=== PATIENT | male | born 1955 | race Caucasian/White ===

== ENCOUNTER 2017-01-15 12:48 | Emergency (ER) | payer OTHER ==
--- NOTE | ~2017-01-15 | HP ---
PATIENT'S NAME: MALIA DIANE [facility] AGE: 61 Y [address] ROOM: [place] [address] LOCATION: [facility] ADMIT DATE: 01/15/2017 History & Physical DISCHARGE DATE: 01/15/2017 FAMILY PHYSICIAN: Lan Kwan MD ATTENDING PHYSICIAN: Benedict Amador DATE OF SERVICE: 01/15/2017 REQUESTING PHYSICIAN: Lan Kwan MD CHIEF COMPLAINT: Incarcerated right inguinal hernia. HISTORY OF PRESENT ILLNESS: Mr. Diane is a 61-year-old gentleman who has had a known right inguinal hernia for a while now. He never desired to have this repaired in the past. He has always been able to reduce it before, but did have some difficulty at times. This morning, the hernia was smaller than it has been, but more painful and could not be reduced. He was evaluated by Dr. Kwan who could not reduce the hernia either. The patient then came over to [facility] Emergency Room for evaluation. He complains of pain in the right groin. The pain is fairly severe despite having received narcotics. He has never had a previous hernia repair. He has never noticed a bulge or discomfort on the left side. PAST MEDICAL HISTORY: Really unremarkable other than some ulcer disease. MEDICATIONS: Include: 1. Fish oil. 2. Tylenol. SOCIAL HISTORY: The patient is . His is here with him. He is a nonsmoker. No alcohol use. He works as a geospatial developer. PREVIOUS SURGERIES: The patient has had a cervical surgery as well as several left knee surgeries. REVIEW OF SYSTEMS: Otherwise, unremarkable. The patient did mention that he avoids antiinflammatories because of his ulcer disease history. FAMILY HISTORY: PATIENT'S NAME: MALIA DIANE [facility] AGE: 61 Y [address] ROOM: [place] [address] LOCATION: [facility] ADMIT DATE: 01/15/2017 History & Physical DISCHARGE DATE: 01/15/2017 FAMILY PHYSICIAN: Lan Kwan MD ATTENDING PHYSICIAN: Benedict Amador He had a father with diabetes, as well as family history of some coronary artery disease and hypertension. PHYSICAL EXAMINATION: GENERAL: The patient is a thin, healthy, well-nourished gentleman who appears slightly younger than stated age. He does appear to be in some discomfort, but no severe distress. VITAL SIGNS: Temperature is 97.7, pulse 62, and blood pressure 108/68. HEENT: Normocephalic, atraumatic. Pupils are equal. There is no scleral icterus. External ears, nose, and eyelids are unremarkable. NECK: There are no masses or adenopathy. Breathing is nonlabored. LUNGS: Clear to auscultation without rales, rhonchi, or wheezing. HEART: Regular rate and rhythm. ABDOMEN: Soft. It is not distended. There are normoactive bowel sounds. There is no tenderness. GENITOURINARY: Normal external male genitalia. There is a 4 cm firm lump in the right groin consistent with an incarcerated hernia. No obvious hernia on the left. EXTREMITIES: The patient has some tape on his right ankle. He has a scar on the left knee. Otherwise, the extremities are unremarkable. No deformities. No cyanosis or clubbing. He moves all 4 extremities well. ASSESSMENT: Incarcerated right inguinal hernia. We laid the patient flat and gave him some morphine. With some moderate pressure, we were able to reduce the hernia. He had immediate relief of pain. PLAN: The patient is going to go home. He is going to take it easy. No exercising or heavy lifting. He is to come back if any recurrent incarceration. Otherwise, we are going to plan on proceeding with repair of his right inguinal hernia at [facility] next Wednesday. MD TONG HERNANDEZ/serena /[id number] CC: Lan Kwan MD D: [id number] T: [id number] HISTORY & PHYSICAL
--- NOTE | ~2017-01-15 | ER ---
PATIENT'S NAME: MALIA LEE [facility] AGE: 61 Y [address] ROOM: [place] [address] LOCATION: ED ADMIT DATE: 01/15/2017 ER/Outpatient Report DISCHARGE DATE: 01/15/2017 FAMILY PHYSICIAN: Lan Kwan MD ATTENDING PHYSICIAN: Benedict Amador CHIEF COMPLAINT: Inguinal pain and hernia. HISTORY OF PRESENT ILLNESS: The patient was at the [facility] in [facility] for some inguinal pain. He has a known right inguinal hernia. He is unable to reduce it at home and the local physician there, Dr. Lan Kwan, was unable to reduce it as well. He was then referred here to see surgery in the ED. He has no other issues and has received some pain medication for it and upon arrival is feeling okay. PAST MEDICAL HISTORY: Documented on the record and reviewed by me. SOCIAL HISTORY: Documented on the record and reviewed by me. MEDICATIONS: Documented on the record and reviewed by me. ALLERGIES: DOCUMENTED ON THE RECORD AND REVIEWED BY ME. REVIEW OF SYSTEMS: All systems were reviewed and negative except as noted in the HPI. PHYSICAL EXAMINATION: GENERAL: I did see this patient briefly, performed a brisk evaluation. He was in obvious discomfort, but no respiratory distress and was bent over the side of the bed in obvious discomfort. He was otherwise appropriate. NEUROLOGIC: GCS was 15. HEENT: Normocephalic, atraumatic. The eyes are PERRL. NECK: Supple. CHEST: Even unlabored respirations. The pulse was regular. ABDOMEN: Benign EXTREMITIES: Normal grossly. : Deferred to the surgeon. LABS AND X-RAYS: PATIENT'S NAME: MALIA LEE [facility] AGE: 61 Y [address] ROOM: [place] [address] LOCATION: ED ADMIT DATE: 01/15/2017 ER/Outpatient Report DISCHARGE DATE: 01/15/2017 FAMILY PHYSICIAN: Lan Kwan MD ATTENDING PHYSICIAN: Benedict Amador None. IMPRESSION: Inguinal hernia. ED COURSE: The patient was accepted to the ED by the surgery team. I did evaluate him to ensure no other conditions existed. I did not have cause to persue alternative diagnoses. He was otherwise stable in the emergency department. I did give him some morphine and Zofran for pain and nausea. Dr. Ch, surgeon did come to the emergency department and addressed the hernia as planned. Please see his dictation for same. The patient will need to follow up with Dr. Ch as directed for surgery on Wednesday, the . The patient should expect a phone call with further directions. In the interim, he is to take it easy with no strenuous activity, particularly running and to try to not cough as much as possible. All questions were answered and the patient was discharged in good condition. MD ARIE FLORES/serena /[id number] d: 01/15/17 1743 t: 01/16/17 0626, OUTPATIENT REPORT
== END 2017-01-15 13:53 | disposition disaster alternative care site (69) ==
LOC: GMSU 12:48 → GMED 12:48 → GMSU 12:48 → UNDOADMOB 12:48 → EDSTATUS 13:36 → GMED 13:53
DX: K40.90 Unilateral inguinal hernia, without obstruction or gangrene, not specified as recurrent (principal)
CPT/HCPCS: J2270; J2405